=== PATIENT | male | born 1980 | race Caucasian/White ===

== ENCOUNTER 2017-11-04 11:58 | Emergency (ER) | payer MEDICARE, OTHER | END 2017-11-04 12:58 | disposition home or self-care (01) | LOC: FTE 11:58 | DX: F25.9 Schizoaffective disorder, unspecified (principal); Z76.0 Encounter for issue of repeat prescription | CPT/HCPCS: 99281 ==

== ENCOUNTER 2018-01-12 03:26 | Emergency (ER) | payer MEDICARE, OTHER ==
[2018-01-12] MEDS: HYDROCODONE/APAP (5/325) TAB PO (04:36)
== END 2018-01-12 05:13 | disposition home or self-care (01) ==
LOC: FTE 03:26
DX: K04.7 Periapical abscess without sinus (principal); K02.9 Dental caries, unspecified
CPT/HCPCS: 99283

== ENCOUNTER 2018-04-24 23:47 | Emergency (ER) | payer MEDICARE, OTHER ==
[2018-04-25] MEDS: AMOXICILLIN 500 MG CAP PO (02:39)
[2018-04-25] MEDS: IBUPROFEN 600 MG TAB PO (02:40)
== END 2018-04-25 02:51 | disposition home or self-care (01) ==
LOC: FTE 23:47
DX: L08.9 Local infection of the skin and subcutaneous tissue, unspecified (principal); F17.210 Nicotine dependence, cigarettes, uncomplicated
CPT/HCPCS: 99283

== ENCOUNTER 2018-10-29 01:20 | Emergency (ER) | payer MEDICARE, OTHER ==
[2018-10-29] MEDS: LIDOCAINE 1% (MPF) 5 ML VIAL INFIL (02:19)
[2018-10-29] MEDS: BACITRACIN 0.5%/ZINC 28.35 GM OINT TOP (02:35)
[2018-10-29] MEDS: IBUPROFEN 800 MG TAB PO (02:36)
== END 2018-10-29 02:40 | disposition home or self-care (01) ==
LOC: FTE 01:20
DX: L02.414 Cutaneous abscess of left upper limb (principal); Z87.891 Personal history of nicotine dependence
CPT/HCPCS: 10060; 99283-25